=== PATIENT | male | born 2000 | race Caucasian/White ===

== ENCOUNTER 2019-12-21 10:49 | Emergency (ER) | payer SELFPAY ==
[2019-12-21 11:28] LABS: HEMATOCRIT 45.1 % (39.0-50.0); HEMOGLOBIN 15.5 g/dl (14.0-18.0); IMMATURE GRANULOCYTES 0.5 % (0.0-5.0); MEAN CELL VOLUME 87.7 fL CALC (80.0-100.0); MEAN CORPUSCULAR HGB 30.2 pG CALC (26.0-32.0); MEAN CORPUSCULAR HGB CONC 34.4 g/dL CAL (32.0-36.0); NEUT# 12.55 thou/uL (1.82-7.42); RED BLOOD COUNT 5.14 mill/uL (4.70-6.10); RED CELL DISTRI WIDTH 12.5 % (11.5-15.5)
[2019-12-21 11:48] LABS: ALBUMIN 4.7 g/dL (3.2-5.0); ALKALINE PHOSPHATASE 125 u/l (38-126); ANION GAP 18 (6-22 (CALC)); BILIRUBIN, TOTAL 0.7 mg/dL (0.0-1.4); BUN 10 mg/dL (9-20); BUN/CREATININE RATIO 13 (12-20 (CALC)); CARBON DIOXIDE 21 mmol/l (22-30); CHLORIDE 100 mmol/l (95-108); CREATININE 0.7 mg/dL (0.7-1.3); GFR > 60 ML/MIN (>=60 (CALC)); GFR FOR AFR.AMER. > 60 ML/MIN (>=60 (CALC)); LIPASE 26 u/l (23-300); POTASSIUM 3.5 mmol/l (3.5-5.1); SGOT/AST 27 u/l (17-59); SODIUM 135 mmol/l (137-146); TOTAL PROTEIN 9.3 g/dL (6.3-8.2)
[2019-12-21] MEDS ORDERED: ZOFRAN4 M1 PO (14:02)
[2019-12-21] MEDS ORDERED: DICYCLOMINE20 MG PO (14:02)
[2019-12-21 14:05] VITALS: BP 143/71
== END 2019-12-21 14:10 | disposition home or self-care (01) | DRG 392 ==
LOC: ED 10:49
PROVIDERS: Student in an Organized Health Care Education/Training Program
DX: K52.9 Noninfective gastroenteritis and colitis, unspecified (principal); F41.9 Anxiety disorder, unspecified; F17.200 Nicotine dependence, unspecified, uncomplicated; Z79.899 Other long term (current) drug therapy; Z20.828 Contact with and (suspected) exposure to other viral communicable diseases
CPT/HCPCS: Q9967